=== PATIENT | female | born 1990 | race Caucasian/White ===

== ENCOUNTER 2016-12-17 08:53 | Emergency (ER) | payer OTHER ==
[2016-12-17 09:10] VITALS: BP 118/80
--- NOTE | 2016-12-17 10:07 | UC ---
Respiratory Complaint HPI - HPI Summary HPI Summary: The patient comes in today for: 1. Sinus pressure: Onset: 10 days. Palliative/provocative: NOthing makes it better or worse. Quality: Pressure Region: Sinuses Severity: 11/19 Time: Constant. Associated symptoms: Fevers: None. Rhinitis: None. Previous treatment: Augmentin which helped while on it for 10 days. She finished this October 28. She has done well after that treatment until now. Post nasal drip: Present Cough: Present, but sputum never seen. * - History of Current Complaint Chief Complaint: UCRespiratory Stated Complaint: SINUS COMPLAINT Time Seen by Provider: 12/17/16 09:58 Hx Obtained From: Patient Hx Last Menstrual Period: 11/26/16 - Allergies/Home Medications Allergies/Adverse Reactions: Allergies Allergy/AdvReac Type Severity Reaction Status Date / Time Cephalexin [From Keflex] Allergy Hives Verified 12/17/16 09:10 Home Medications: Home Medications Folic Acid TAB* [Folvite TAB*] 1 mg PO DAILY 12/17/16 [History Confirmed ] Multiple Vitamin [Daily Multiple Vitamins] 1 tab PO DAILY 12/17/16 [History Confirmed 12/17/16] PMH/Surg Hx/FS Hx/Imm Hx Previously Healthy: No - Folic acid "just because my doctor told me to take it. " - Surgical History Surgical History: Yes Surgery Procedure, Year, and Place: tonsilectomy - Family History Known Family History: Negative: Hypertension, Diabetes - Social History Occupation: Employed Full-time Alcohol Use: Occasionally Substance Use Type: None Smoking Status (MU): Never Smoked Tobacco Review of Systems Constitutional: Negative Skin: Negative Eyes: Negative ENT: Negative Respiratory: Cough Cardiovascular: Negative Gastrointestinal: Negative All Other Systems Reviewed And Are Negative: Yes Physical Exam Triage Information Reviewed: Yes Appearance: Well-Appearing, No Pain Distress, Well-Nourished Vital Signs: Initial Vital Signs Temp 98 F 12/17/16 09:01 Pulse 57 12/17/16 09:01 Resp 14 12/17/16 09:01 BP 118/80 12/17/16 09:01 Pulse Ox 100 12/17/16 09:01 Vital Signs Reviewed: Yes Eyes: Positive: Conjunctiva Clear. Negative: Discharge ENT: Positive: Hearing grossly normal, Other: - Slight tenderness to palpation of the frontal and maxillary sinuses.. Negative: Pharyngeal erythema, Nasal congestion, Nasal drainage, TM bulging, TM dull, TM red, Tonsillar swelling, Tonsillar exudate Dental: Negative: Gross Decay/Caries @, Dental Fracture @ Neck: Positive: Supple, Nontender, No Lymphadenopathy. Negative: Nuchal Rigidity Respiratory: Positive: No respiratory distress, No accessory muscle use. Negative: Chest non-tender, Lungs clear, Crackles, Wheezing Cardiovascular: Positive: RRR, No Murmur Abdomen Description: Positive: Nontender, No Organomegaly, Soft. Negative: Distended, Guarding Musculoskeletal: Positive: Strength Intact, ROM Intact, No Edema Neurological: Positive: Alert, Muscle Tone Normal Psychological: Positive: Age Appropriate Behavior, Consolable Skin: Negative: rashes, breakdown UC Diagnostic Evaluation - Laboratory O2 Sat by Pulse Oximetry: 100 Respiratory Course/Dx - Differential Dx/Diagnosis Differential Diagnosis/HQI/PQRI: Bronchitis, Laryngitis, Sinusitis Provider Diagnoses: Sinusitis Discharge - Discharge Plan Condition: Stable Disposition: HOME Forms: *Work Release Referrals: Adonay Kurtz MD [Medical Doctor] - Sydney Carreon MD [Primary Care Provider] - Additional Instructions: If you are not doing well, please see your primary care provider or Dr. Kurtz for further evaluation.
== END 2016-12-17 10:26 | disposition home or self-care (01) ==
LOC: UCCORT 08:53
DX: J32.9 Chronic sinusitis, unspecified (principal)
CPT/HCPCS: 99212; G0463